=== PATIENT | male | born 1960 | race Two or more races ===

== ENCOUNTER 2019-01-19 07:28 | Emergency (ER) | payer MEDICAID ==
[~2019-01-19] VITALS: Ht 170.2 cm; Wt 75.0 kg
[2019-01-19] MEDS ORDERED: ONDANSETRON HCL 4MG/2ML INJ IV STA (08:13)
[2019-01-19] MEDS ORDERED: SODIUM CHLORIDE 0.9% 1,000 ML IV ONE (08:13)
[2019-01-19] MEDS ORDERED: DIPHENHYDRAMINE 50MG/ML VIAL IV ONE (08:15)
[2019-01-19 09:02] LABS: BASOPHILS % 0.2 % (0.0-2.0); HEMATOCRIT. 44.7 % (42.0-52.0); HEMOGLOBIN. 15.5 g/dL (14.0-18.0); LYMPHOCYTES % 8.8 % (20.0-50.0); MEAN CORPUSCULAR HEMOGLOBIN 30.3 pg (28.0-32.0); MEAN CORPUSCULAR VOLUME 87.6 fL (80.0-94.0); MEAN PLATELET VOLUME 9.3 fl (7.4-10.4); MONOCYTES % 6.9 % (2.0-8.0); NEUTROPHILS % 84.1 % (40.0-76.0); PLATELET 124 x1000/uL (130-400); RED CELL DISTRIBUTION WIDTH 13.6 % (11.6-14.6)
[2019-01-19 09:09] LABS: CHLORIDE 105 mEq/L (98-107); INR 1.2; PROTHROMBIN TIME 12.3 sec (9.6-11.0)
[2019-01-19] MEDS ORDERED: IOHEXOL-300 100 ML BOTTLE ONE (09:55)
[2019-01-19 10:29] LABS: CLARITY URINE CLEAR (CLEAR); COLOR URINE YELLOW (YELLOW); KETONES URINE NEGATIVE (NEGATIVE); LEUKOCYTE ESTERASE URINE NEGATIVE (NEGATIVE); NITRITE URINE NEGATIVE (NEGATIVE); OCCULT BLOOD URINE NEGATIVE (NEGATIVE); PH URINE 5.5 (4.5-8.0); PROTEIN URINE NEGATIVE (NEGATIVE); SPECIFIC GRAVITY URINE 1.026 (1.005-1.030); UROBILINOGEN URINE 0.2 E.U./dL (0.2-1.0)
[2019-01-19 12:23] VITALS: BP 148/88
== END 2019-01-19 14:56 | disposition home or self-care (01) ==
LOC: ER 07:28
DX: R10.33 Periumbilical pain (principal); R19.7 Diarrhea, unspecified
CPT/HCPCS: 36415; 74177; 80053; 81003; 83690; 85025; 85610; 96361; 96374; 96375; 99284; J1200; J2405; J7030; Q9967; Z7610

== ENCOUNTER 2019-07-21 11:17 | Emergency (ER) | payer MEDICAID ==
[~2019-07-21] VITALS: Ht 170.2 cm; Wt 101.0 kg
[2019-07-21 12:26] LABS: BASOPHILS % 0.6 % (0.0-2.0); EOSINOPHILS % 3.2 % (0.0-5.0); HEMATOCRIT. 43.9 % (42.0-52.0); HEMOGLOBIN. 15.6 g/dL (14.0-18.0); LYMPHOCYTES % 28.1 % (20.0-50.0); MEAN CORPUSCULAR HEMOGLOBIN 30.8 pg (28.0-32.0); MEAN CORPUSCULAR VOLUME 86.4 fL (80.0-94.0); MEAN PLATELET VOLUME 9.1 fl (7.4-10.4); MONOCYTES % 10.7 % (2.0-8.0); NEUTROPHILS % 57.4 % (40.0-76.0); PLATELET 148 x1000/uL (130-400); RED BLOOD CELL COUNT 5.08 mill/uL (4.7-6.1); RED CELL DISTRIBUTION WIDTH 13.2 % (11.6-14.6)
[2019-07-21 12:35] LABS: CHLORIDE 109 mEq/L (98-107)
[2019-07-21] MEDS ORDERED: CLONIDINE 0.1MG TABLET PO PRN (13:00)
[2019-07-21 16:51] VITALS: BP 196/98
== END 2019-07-21 17:15 | disposition home or self-care (01) ==
LOC: ER 11:17
DX: M79.89 Other specified soft tissue disorders (principal)
CPT/HCPCS: 36415; 80048; 83880; 84484; 85025; 93005; 93971; 99284; Z7610

== ENCOUNTER 2020-01-05 19:56 | Emergency (ER) | payer MEDICAID ==
[~2020-01-05] VITALS: Ht 172.7 cm; Wt 81.2 kg
[2020-01-05] MEDS ORDERED: HYDROCHLOROTHIAZIDE 25MG TABLET PO ONE (21:15)
[2020-01-05 21:35] LABS: BASOPHILS % 0.4 % (0.0-2.0); EOSINOPHILS % 4.1 % (0.0-5.0); HEMATOCRIT. 45.6 % (42.0-52.0); LYMPHOCYTES % 30.5 % (20.0-50.0); MEAN CORPUSCULAR HEMOGLOBIN 30.4 pg (28.0-32.0); MEAN CORPUSCULAR VOLUME 86.8 fL (80.0-94.0); MEAN PLATELET VOLUME 9.4 fl (7.4-10.4); MONOCYTES % 9.5 % (2.0-8.0); NEUTROPHILS % 55.5 % (40.0-76.0); PLATELET 152 x1000/uL (130-400); RED BLOOD CELL COUNT 5.26 mill/uL (4.7-6.1); RED CELL DISTRIBUTION WIDTH 13.2 % (11.6-14.6)
[2020-01-05 21:43] LABS: CHLORIDE 105 mEq/L (98-107)
[2020-01-05 22:15] VITALS: BP 217/169
== END 2020-01-05 22:15 | disposition home or self-care (01) ==
LOC: ER 19:56
DX: I10 Essential (primary) hypertension (principal)
CPT/HCPCS: 36415; 71045; 80053; 83880; 84484; 85025; 93005; 99285

== ENCOUNTER 2020-06-25 10:51 | Emergency (ER) | payer MEDICAID ==
[~2020-06-25] VITALS: Ht 170.2 cm; Wt 82.0 kg
[2020-06-25] MEDS ORDERED: HYDROCHLOROTHIAZIDE 25MG TABLET PO ONE (11:45)
[2020-06-25 13:33] VITALS: BP 180/99
== END 2020-06-25 13:37 | disposition home or self-care (01) ==
LOC: ER 11:24
DX: I10 Essential (primary) hypertension (principal)
CPT/HCPCS: 93005; 99283